=== PATIENT | male | born 1985 | race Caucasian/White ===

== ENCOUNTER 2023-10-03 05:13 | Inpatient (IN) ==
--- NOTE | 2023-10-02 10:16 | Anesthesiology Consultation ---
Date of Service October 02, 2023 Assessment & Plan (1) Encounter for pre-operative examination: - check CBC with diff, BMP, coags, CRP, ESR and MRSA nasal swab STAT am DOS per surgeon's office. Fluid orders to anesthesiologist review of BMP DOS. [place] lab confirmed that MRSA swab can be completed and resulted prior to surgery within 45-60 minutes DOS. Surgeon's office and OR made aware. - orthopedics phone call 10/02/23: "...he called retention representative last night. Dr. Manoj morrison was retention representative. After identification, did discuss with the patient the reason for the call last evening. He states that last evening he had a spike in a fever to 103 with weakness. He states that today he is doing OK. His knee pain has been stable. No worsening. He has not had any chills, sweats. He did have some nausea last night and has a little bit of a sour stomach this morning. His temp today is ranging from 100.2-100.6 on Tylenol. Did discuss the option of going to ED today for admission and IV antibiotics. He is doing OK at this point. We have him scheduled for a right knee wash out tomorrow. We will keep in touch with him..." - Per speech language specialist on 10/02/23: No known infectious disease contacts, current infectious disease symptoms in past 10 days or COVID positive test result in the past 30 days. Chart Review Chart Review: Acceptable Risk for Surgery and Patient NOT seen in Pre Admission Testing History Surgery Operation Date: 10/03/23 07:15 Proposed Procedures p Right Knee Arthroscopy, Irrigation and Debridement - Malcolm Gold MD Height/Weight Height: 6 ft Weight: 122.47 kg Allergies Allergy/AdvReac Type Severity Reaction Status Date / Time No Known Allergies Allergy Verified 10/02/23 09:43 Medications Home Medications Medication Instructions Recorded Confirmed Last Taken atorvastatin 40 mg tablet 40 mg PO HS 08/19/18 10/02/23 06/16/23 multivitamin 1 tab PO HS 05/26/20 10/02/23 06/16/23 tramadol 50 mg tablet 50 mg PO Q6H PRN Pain #20 tabs 05/27/20 10/02/23 Unknown promethazine 25 mg tablet 25 mg PO DAILY PRN Nausea 08/29/20 10/02/23 Unknown sumatriptan succinate 50 mg tablet 50 mg PO UD PRN Migraine Headache 08/29/20 10/02/23 Unknown (Imitrex) mupirocin 2 % topical ointment 1 applic topical .qhs PRN dryness 03/20/21 10/02/23 Unknown and crusting #15 grams bupropion HCl 150 mg 24 hr tablet, 150 mg PO QAM 06/07/21 10/02/23 06/17/23 extended release ondansetron HCl 4 mg tablet 4 mg PO Q6H PRN nausea and 07/06/21 10/02/23 Unknown vomiting #12 tabs montelukast 10 mg tablet 10 mg PO QAM #90 tabs 08/04/21 10/02/23 06/17/23 (Singulair) fluoxetine 20 mg capsule 20 mg PO HS 06/07/23 10/02/23 06/16/23 ipratropium bromide 21 mcg (0.03 1 spray intranasal QAM PRN nasal 06/07/23 10/02/23 Unknown %) nasal spray congetion sulfamethoxazole 800 1 tab PO Q12H 10 days #20 tabs 10/01/23 10/02/23 Unknown mg-trimethoprim 160 mg tablet (Bactrim DS) acetaminophen 500 mg tablet 500 mg PO Q6H PRN fever/pain 10/02/23 10/02/23 Unknown naproxen sodium 220 mg tablet 220 mg PO BID PRN fever/pain 10/02/23 10/02/23 Unknown (Aleve) Past Medical History Medical History (Updated 10/02/23 @ 10:14 by Roseann Thomas PA-C) ADHD no current medications Allergic reaction to food Chronic sinusitis History of COVID-19 (2019) resolved History of migraine headaches Hx of penicillin allergy tested in 2020, no longer has an allergy. Hyperlipidemia lipitor Post traumatic stress disorder Seasonal allergies Septic arthritis of knee, right current staph infection, started on abx 10/01/23. currently has a fever and taking tylenol and aleve around the clock to maintain temp ~100*F (per patient) Sleep apnea hx MANUEL? - denies having MANUEL. Social anxiety disorder loud crowded environments Past Family History Family History Grandfather (Maternal) Hearing loss Cancer Grandmother (Maternal) Hearing loss Unknown Hypertension Other No family history of adverse response to anesthesia No family history of bleeding disorder Past Surgical History Surgical History History of ankle surgery (06/18/23) right ankle arthroscopy History of colonoscopy History of nasal septoplasty (05/27/20) Dr Pitts History of sinus surgery (05/27/20) Dr. Pitts History of tonsillectomy (01/20/21) Dr. Pitts History of uvulopalatopharyngoplasty (01/20/21) Dr. Pitts S/P hip arthroscopy x3 right hip arthroscopy S/P right knee arthroscopy (06/18/23) Social History Smoking Status: Never smoker Do You Dip or Chew Tobacco: No Hx Alcohol Use: Yes Alcohol type: beer and hard liquor alcohol intake frequency: holidays/special occasions only Hx Substance Use: No substance use type: does not use
[2023-10-03 05:42] LABS: Basophils # (auto) 0.05 K/uL (0.00-0.20); Basophils % (auto) 0.3 %; Eosinophils # (auto) 0.23 K/uL (0.00-0.50); Eosinophils % (auto) 1.5 %; Hematocrit (blood only) 41.4 % (42.0-52.0); Hemoglobin 13.8 g/dl (14.0-18.0); Immature Granulocytes # (auto) 0.09 K/uL (0.01-0.20); Immature Granulocytes % (auto) 0.6 %; Lymphocytes # (auto) 2.32 K/uL (1.20-3.40); Lymphocytes % (auto) 15.5 %; Mean Corpuscular Hemoglobin 26.2 pg (25.0-34.0); Mean Corpuscular Hgb Conc 33.3 g/dL (32.0-36.0); Mean Corpuscular Volume 78.6 fL (80.0-100.0); Mean Platelet Volume 11.3 fL (9.4-12.4); Monocytes # (auto) 1.37 K/uL (0.11-0.59); Monocytes % (auto) 9.1 %; Neutrophils # (auto) 10.92 K/uL (1.40-6.50); Platelet Count 249 K/uL (130-400); RDW Standard Deviation 37.1 fL (36.4-46.3); Red Blood Count 5.27 M/uL (4.70-6.10); White Blood Count 14.98 K/ul (4.8-10.8)
[2023-10-03 05:56] LABS: BUN Creatinine Ratio 12.9 (10-20); C Reactive Protein 24.23 mg/dl (0-0.5); Calcium 9.4 mg/dl (8.6-10.3); Creatinine Clr Calc Pharmacy 142.7 ml/min; Est GFR (African American) 118.6 ml/min; Est GFR (Non-African American) 102.3 ml/min
[2023-10-03] MEDS: LR 60ML/HR IV SCH (05:57)
[2023-10-03] MEDS: ACETAMINOPHEN 500 MG TAB PO SCH ×2 (05:58→14:10)
[2023-10-03 06:15] LABS: Partial Thromboplastin Ratio 1.1; Partial Thromboplastin Time 30 Seconds (21-31); Prothrombin Time 10.8 Seconds (9.0-12.0)
[2023-10-03] MEDS ORDERED: LIDOCAINE 2% 2 ML VIAL/AMP(20MG/ML) INFIL ONE (06:30)
[2023-10-03] MEDS ORDERED: ONDANSETRON INJ 2 MG/ML 2 ML VIAL ONE (06:31)
[2023-10-03] MEDS ORDERED: PROPOFOL IV EMULSION 10 MG/ML 20 ML VIAL IV ONE (06:31)
[2023-10-03] MEDS ORDERED: DEXAMETHASONE SOD INJ 4 MG/ML VIAL ONE ×2 (06:31→08:19)
[2023-10-03] MEDS ORDERED: MIDAZOLAM HCL 1 MG/ML 2ML VIAL ONE (06:31)
[2023-10-03] MEDS ORDERED: fentaNYL citrate PF 100 MCG/2 ML VIAL ONE ×2 (06:31→08:31)
[2023-10-03] MEDS ORDERED: ePHEDrine sulfate 50 MG/ML AMP IV PRN (06:50)
[2023-10-03] MEDS ORDERED: ATROPINE SULFATE 0.1 MG/ML 10ML SYR IV PRN (06:50)
[2023-10-03] MEDS ORDERED: fentaNYL citrate PF 100 MCG/2 ML VIAL IV PRN (06:50)
[2023-10-03] MEDS ORDERED: ONDANSETRON INJ 2 MG/ML 2 ML VIAL IV PRN ×2 (06:50→10:28)
--- NOTE | 2023-10-03 07:09 | History & Physical Report ---
Date of Service October 03, 2023 Assessment & Plan (1) Septic arthritis of knee, right: I reviewed the risk, benefits, and alternatives to surgical invention this morning. Patient and his are agreeable to proceed with right knee irrigation and debridement for the septic arthritis. Will plan to keep him adm itted at least overnight for parental IV treatment until an antibiotic plan can be established. History of Present Illness Chief Complaint: Right knee pain and swelling Primary Care Provider: Zahraa Stratton PA-C 38-year-old male who several months out from a prepatellar bursectomy developed a septic arthritis that we identified in clinic this week. We initially started him on Bactrim and symptoms improved. Unfortunately the culture grew out Staphylococcus. We recommended irrigation debridement. He says fevers have been down but the knee remains painful and red. No prior history of this problem. Allergies Allergy/AdvReac Type Severity Reaction Status Date / Time No Known Allergies Allergy Verified 10/03/23 05:34 Home Medications Medication Instructions Recorded Confirmed Type atorvastatin 40 mg tablet 40 mg PO HS 08/19/18 10/03/23 History multivitamin 1 tab PO HS 05/26/20 10/03/23 History tramadol 50 mg tablet 50 mg PO Q6H PRN Pain #20 tabs 05/27/20 10/03/23 Rx promethazine 25 mg tablet 25 mg PO DAILY PRN Nausea 08/29/20 10/03/23 History sumatriptan succinate 50 mg tablet 50 mg PO UD PRN Migraine Headache 08/29/20 10/03/23 History (Imitrex) mupirocin 2 % topical ointment 1 applic topical .qhs PRN dryness 03/20/21 10/03/23 Rx and crusting #15 grams bupropion HCl 150 mg 24 hr tablet, 150 mg PO QAM 06/07/21 10/03/23 History extended release (Wellbutrin XL) ondansetron HCl 4 mg tablet 4 mg PO Q6H PRN nausea and 07/06/21 10/03/23 Rx vomiting #12 tabs montelukast 10 mg tablet 10 mg PO QAM #90 tabs 08/04/21 10/03/23 Rx (Singulair) fluoxetine 20 mg capsule 20 mg PO HS 06/07/23 10/03/23 History ipratropium bromide 21 mcg (0.03 1 spray intranasal QAM PRN nasal 06/07/23 10/03/23 History %) nasal spray congetion sulfamethoxazole 800 1 tab PO Q12H 10 days #20 tabs 10/01/23 10/03/23 Rx mg-trimethoprim 160 mg tablet (Bactrim DS) acetaminophen 500 mg tablet 500 mg PO Q6H PRN fever/pain 10/02/23 10/03/23 History naproxen sodium 220 mg tablet 220 mg PO BID PRN fever/pain 10/02/23 10/03/23 History (Aleve) Past Med/Surg History Problem List Septic arthritis of knee, right Knee effusion, right S/P right knee surgery Operation Date: 06/18/23 09:50 Actual Procedures p Right Knee Prepatellar Bursectomy(Right) - Malcolm Gold MD s Right Ankle Arthroscopy, Synovectomy (Right) - Malcolm Gold MD s Open Peroneal Brevis Repair(Right) - Malcolm Gold MD History of ankle surgery Operation Date: 06/18/23 09:50 Actual Procedures p Right Knee Prepatellar Bursectomy(Right) - Malcolm Gold MD s Right Ankle Arthroscopy, Synovectomy (Right) - Malcolm Gold MD s Open Peroneal Brevis Repair(Right) - Malcolm Gold MD Effusion, right ankle Allergic rhinitis due to dust mite Penicillin allergy Non-allergic rhinitis Allergic rhinitis due to pollen Iliopsoas bursitis of right hip Tear of peroneal tendon of right foot Tendinitis of right hip flexor Right hip impingement syndrome Labral tear of hip joint p Right Hip Arthroscopy,Iliopsoas Release, Revision Labral Repair, Femoroplasty, Capsular Repair, Acetabuloplasty Sinusitis Allergic fungal sinusitis (AFS) Encounter for pre-operative examination Migraines Chronic sinusitis Acquired deviated nasal septum Sleep apnea Prepatellar bursitis, right knee Depression Rash and nonspecific skin eruption (Acute) Corneal abrasion (Acute) Medical History Allergic reaction to food Septic arthritis of knee, right current staph infection, started on abx 10/01/23. currently has a fever and taking tylenol and aleve around the clock to maintain temp ~100*F (per patient) Chronic sinusitis Post traumatic stress disorder Social anxiety disorder loud crowded environments Sleep apnea hx MANUEL? - denies having MANUEL. Hx of penicillin allergy tested in 2020, no longer has an allergy. History of COVID-19 (2019) resolved Seasonal allergies History of migraine headaches ADHD no current medications Hyperlipidemia lipitor Surgical History S/P right knee arthroscopy (06/18/23) History of ankle surgery (06/18/23) right ankle arthroscopy S/P hip arthroscopy x3 right hip arthroscopy History of uvulopalatopharyngoplasty (01/20/21) Dr. Pitts History of tonsillectomy (01/20/21) Dr. Pitts History of sinus surgery (05/27/20) Dr. Pitts History of nasal septoplasty (05/27/20) Dr Pitts History of colonoscopy Family History Grandfather (Maternal) Hearing loss Cancer Grandmother (Maternal) Hearing loss Unknown Hypertension Other No family history of adverse response to anesthesia No family history of bleeding disorder Social History Smoking Status: Never smoker Second Hand Exposure: No; Do You Dip or Chew Tobacco: No; Tobacco Cessation Education Requested by Patient: No Hx Alcohol Use: Yes Alcohol type: beer and hard liquor Hx Substance Use: No Preferred Language: Kinyarwanda Communication Ability: Effective Studio Sales Associate Required: No Beliefs That Will Affect Care: None Current Living Situation: Spouse and Family Other Information That Helps Us Care for You: No Feels Safe at Home: Yes Safety Concerns: Feels Safe At This Time Assistive Devices: Glasses Review of Systems All systems reviewed & are unremarkable except as noted in HPI & below. Physical Exam Right knee: Patchy erythema over the anterior aspect. No drainage from that well-healed surgical incisions. Range of motion from 0 to about 90 limited by tension. Minimal tenderness over the anterior soft tissues. Mild effusion. Constitutional well developed and well nourished; no acute distress and not intoxicated appearing ENMT external ear and nose normal, oropharynx normal Respiratory normal respiratory effort; no respiratory distress Cardiovascular Extremities: normal capillary refill; no edema Skin no rashes, warm and dry Psychiatric A+Ox3, euthymic affect Results & Data Results & Data Laboratory Results . Diagnostic Findings . PG Care Time/CCT Total # of Minutes Spent Total Time Spent with Patient: Total time spent is greater than 50% in coordination of care (as documented) at patient's floor/unit and/or counseling patient: Coding Level of Care Code None Diagnoses Septic arthritis of knee, right M00.9
[2023-10-03] MEDS ORDERED: ACETAMINOPHEN 1000 MG/100 ML IV IV ONE (07:11)
[2023-10-03] MEDS ORDERED: DexMEDEtomidine HCL IV 100 MCG/ML VIAL IV ONE (07:11)
[2023-10-03] MEDS: ceFAZolin 3000MG 3,000 MG/72.5 ML BAG IV SCH (07:15)
[2023-10-03] MEDS: BUPIVACAINE/EPINEPHRINE 0.25% 1:200,000 30 ML VIAL ONE (08:04)
[2023-10-03] MEDS ORDERED: KETOROLAC 30 MG/ML VIAL ONE (08:19)
--- NOTE | 2023-10-03 08:40 | Post Operative Brief Note ---
PG Immediate Post Op with CF Date of Surgery October 03, 2023 Pre & Post Diagnosis Operation Date: 10/03/23 07:15 Pre-Op Diagnosis: Septic arthritis of knee, right Post-Op Diagnosis: Septic arthritis of knee, right I identified the patient and participated in the time-out.: Yes Procedure Operation Date: 10/03/23 07:15 Actual Procedures p Right Knee Arthroscopy, Endoscopic Prepatellar Bursectomy, Irrigation and Debridement(Right) - Malcolm Gold MD Surgeon Mlacolm Gold MD Marine Plumber Deena Peter PA-C Estimated Blood Loss 25 Findings See Below Septic prepatellar bursitis. No evidence of intra-articular involvement. Specimens Specimen Description: 1. Right prepatella bursa Drains Mendel-Joseph Drain Complications none
--- NOTE | 2023-10-03 09:29 | Anesthesiology Progress Note ---
Date of Service October 03, 2023 Anesthesia Post Procedure Vital Signs Vital Signs: Temp Pulse Resp BP Pulse Ox O2 Del Method O2 Flow Rate 10/03/23 09:20 79 15 128/72 95 Room Air 10/03/23 09:10 78 17 119/83 97 Oxymask 10 10/03/23 09:03 36.0 C L 80 12 136/86 97 Oxymask 10 10/03/23 05:38 37.1 C 80 18 139/95 98 Room Air Pain Intensity Right Knee: Pain Intensity: 2 Transfer of Care Handoff Completed per policy Notes Mental Status: alert / awake / arousable Patient Amnestic to Procedure: Yes Nausea / Vomiting: adequately controlled Pain: adequately controlled Airway Patency, RR, SpO2: stable & adequate BP & HR: stable & adequate Hydration State: stable & adequate Anesthetic Complications: no major complications apparent and Pt Satisfied with anesthetic care
[2023-10-03] MEDS ORDERED: METOCLOPRAMIDE HCL INJ 5 MG/ML 2 ML VIAL IV PRN (10:28)
[2023-10-03] MEDS ORDERED: MAGNESIUM HYDROXIDE SUSP 30 ML UDC PO PRN (10:28)
[2023-10-03] MEDS ORDERED: HYDROmorphone INJ 0.5 MG/0.5 ML SYR IV PRN (10:28)
[2023-10-03] MEDS ORDERED: NALOXONE HCL 0.4 MG/1 ML VIAL/CARP IV PRN (10:28)
[2023-10-03] MEDS ORDERED: bisacodyL 10 MG SUPP PR PRN (10:28)
[2023-10-03] MEDS ORDERED: PROMETHAZINE HCL 25 MG TAB PO PRN (10:28)
[2023-10-03] MEDS ORDERED: diphenhydrAMINE Capsule 25 MG CAP PO PRN (10:28)
[2023-10-03] MEDS: SODIUM CHLORIDE 0.9% 1,000 ML IV SCH (10:40)
[2023-10-03] MEDS ORDERED: IPRATROPIUM BROMIDE NASAL SPRAY 0.06% 15ML NAE PRN (10:44)
[2023-10-03] MEDS: ceFAZolin 2000MG 2,000 MG/15 ML SYR IV SCH (16:01)
--- NOTE | 2023-10-03 18:52 | Operative Report ---
PG Post Operative Report Pre & Post Diagnosis Operation Date: 10/03/23 07:15 Pre-Op Diagnosis: Possible septic arthritis of knee, right Post-Op Diagnosis: Septic prepatellar bursa of right knee I identified the patient and participated in the time-out.: Yes Procedure Operation Date: 10/03/23 07:15 Actual Procedures p Right Knee Arthroscopy, knee joint aspiration, endoscopic Prepatellar Bursectomy, Irrigation and Debridement, knee arthroscopy for irrigation (Right) - Malcolm Gold MD Surgeon Malcolm Gold MD Anode Worker Deena Peter PA-C Estimated Blood Loss 25 Findings See Below Examination under anesthesia revealed majority of the fluid was in the prepatellar space. I cannot palpate an effusion today after the aspiration earlier this week. Knee was prepped and an aspiration was performed in the superior lateral access. No intra-articular fluid could be aspirated. Standard anterolateral and anteromedial incisions were made for an endoscopic prepatellar bursectomy which revealed significant purulent fluid. Revision bursectomy and irrigation debridement of the prepatellar space was performed endoscopically. The superior lateral portal was then utilized because it was away from the prepatellar process. This port was used to enter the joint. Cam was introduced and there was no evidence of infection. Only mild synovitis likely reactive. 6 L of normal saline was then irrigated through the arthroscope through the knee following the endoscopic bursectomy portion. The CHAO drain was placed in the prepatellar space. Specimens Prepatellar bursal aspiration for culture Anesthesia Type General Complications none Disposition Accompanied Patient To Recovery: Yes Disposition: Recovery Room Indications 38-year-old male developed insidious onset pain and swelling in his right knee several months after undergoing an open prepatellar bursectomy for chronic bursitis. He had fevers and a culture positive aspiration from the knee joint. For that reason he was admitted today for urgent irrigation debridement for potential septic arthritis. Curiously, his intra-articular cell count was only 7000. Cultures were positive for Staphylococcus. Reviewed the potential risks of septic arthritis and the patient was agreeable to surgical intervention to washout the medial prepatellar bursa as needed. We did review the risks and benefits in detail. The risks we discussed include but not limited to infection nerve or vessel injury, arthrofibrosis of the knee, need for repeat or revision surgeries, progressive degenerative changes with or without the washout, pendulums, blood clots, and complication related anesthesia. Informed consent was obtained in the clinic, as outlined in the preoperative notes. Description of Procedure On the day of surgery, the patient was greeted in the preoperative holding area. The informed consent was reviewed and confirmed by myself and the patient. The patient identified the surgical site and was marked by me. The patient was then turned over to anesthesia. He was taken to the operating room and placed supine on the OR table. Anesthesia was induced, and the airway was secured. He was positioned supine for knee arthroscopy with a lateral post. Examination was carried out under anesthesia. There was evidence that this is a prepatellar process. Surgical timeout was called by the circulating nurse, and verified by all present. Antibiotics had been infused already and equipment is available and functional. The knee was then prepped in standard fashion and a spinal needle was aspirated the knee joint from the superior lateral portal, away from the erythematous and edematous prepatellar bursal process. This aspiration yielded no synovial fluid from the joint. A different trajectory through the anteromedial portal was used to enter the prepatellar space. Here 20 cc of sanguinous and mildly purulent fluid was extracted. This was sent for culture. The knee was then prepped and draped in the usual sterile fashion for knee arthroscopy. A nonsterile tourniquet had been placed high in the thigh above the sterile area. Standard anterior medial and anterolateral incisions were made immediately. The trocar was then used into the prepatellar space. There was reflux of purulent fluid. The scope was introduced. Medial portal was then entered with motorized shaver. We established visualization by triangulation the prepatellar space. There was obvious synovitic change and thickened bursal tissue on the patella. An extensive prepatellar revision bursectomy was carried out. Removed all erythematous synovitic looking material in the prepatellar space and opened more proximally. Approximately 9 L of irrigant was run through the prepatellar space with the arthroscope during the sterile bursectomy. The [place] wand was used for hemostasis intermittently. Given the obvious prepatellar process, the joint was of less concern. We did obtain an aspiration for culture 2 days ago. For that reason I felt the joint was violated and need to be explored. The superior lateral portal was chosen as it was outside the zone of prepatellar bursitis and erythema. Small skin incision was made, and the trocar was used into the joint and the anterior compartment. Visualization was established. There was pristine articular cartilage. There was some mild anterior compartment synovitis. No evidence of infection in the intra-articular space. 6 L of normal arthroscopic saline was run through the scope while inflating and deflating the joint for thorough irrigation. A CHAO drain was selected and placed through the anterior medial portal and exiting more proximally. This was secured with suture. The incisions were closed using nylon suture. Wounds are dressed with sterile Xeroform, David gauze, ABD, and web roll. The dressing was contained by sterile Olvin wrap. CHAO drain was set to its own suction. The patient tolerated the procedure well, was extubated in the operating without complication, and transported to the recovery in stable condition. Disposition: He will remain inpatient for parenteral antibiotics. Cultures will be followed from the OR; however, we do have aspirate of cultures prior to antibiotic initiation. Will plan to treat for MSSA per this culture and sensitivity. Will follow CHAO drain output and likely discharge in 24 to 48 hours depending on his clinical improvement. He will be weightbearing and range of motion as tolerated. Physician assistant buyer attestation: Deena Peter PA-C was present and scrubbed for the duration of the case. Skilled assistance was essential to prepping/draping, patient positioning, retraction, and assistance with wound closure. I attest to the content of the Intraoperative Record and any orders documented therein. Any exceptions are noted below.
[2023-10-03] MEDS: DOCUSATE SODIUM 100 MG CAP PO SCH (19:39)
[2023-10-03] MEDS: SENNA 8.6 MG TAB PO SCH (19:39)
[2023-10-03] MEDS: ATORVASTATIN 40 MG TAB PO SCH (20:26)
[2023-10-03] MEDS: FLUoxetine HCL 20 MG CAP PO SCH (20:26)
[2023-10-04] MEDS: oxyCODONE HCL IR 5 MG TAB (IMMEDIATE RELEASE) PO PRN (00:54)
[2023-10-04 07:35] LABS: Basophils # (auto) 0.03 K/uL (0.00-0.20); Basophils % (auto) 0.2 %; Eosinophils # (auto) 0.09 K/uL (0.00-0.50); Eosinophils % (auto) 0.7 %; Hematocrit (blood only) 39.1 % (42.0-52.0); Hemoglobin 12.7 g/dl (14.0-18.0); Immature Granulocytes % (auto) 0.8 %; Lymphocytes # (auto) 2.21 K/uL (1.20-3.40); Lymphocytes % (auto) 17.7 %; Mean Corpuscular Hemoglobin 26.2 pg (25.0-34.0); Mean Corpuscular Hgb Conc 32.5 g/dL (32.0-36.0); Mean Corpuscular Volume 80.8 fL (80.0-100.0); Mean Platelet Volume 11.4 fL (9.4-12.4); Monocytes # (auto) 0.83 K/uL (0.11-0.59); Monocytes % (auto) 6.6 %; Neutrophils # (auto) 9.26 K/uL (1.40-6.50); Platelet Count 286 K/uL (130-400); RDW Coefficient of Variation 13.2 % (11.5-14.5); RDW Standard Deviation 38.5 fL (36.4-46.3); Red Blood Count 4.84 M/uL (4.70-6.10); White Blood Count 12.52 K/ul (4.8-10.8)
--- NOTE | 2023-10-04 08:40 | Discharge Summary ---
Date of Service October 04, 2023 Admission HPI (Per Admitting) 38-year-old male who several months out from a prepatellar bursectomy developed a septic arthritis that we identified in clinic this week. We initially started him on Bactrim and symptoms improved. Unfortunately the culture grew out Staphylococcus. We recommended irrigation debridement. He says fevers have been down but the knee remains painful and red. No prior history of this problem. Admission Exam (Per Admitting) Right knee: Patchy erythema over the anterior aspect. No drainage from that well-healed surgical incisions. Range of motion from 0 to about 90 limited by tension. Minimal tenderness over the anterior soft tissues. Mild effusion. Constitutional WD/WN, vitals as above Respiratory normal respiratory effort Skin no rashes Psychiatric A+Ox3, euthymic affect Principal Diagnosis Same as "Discharge Diagnosis" noted below under Discharge Instructions. Discharge Exam No acute distress. Right lower extremity: Dressing clean and dry and intact. The CHAO drain had light serosanguineous drainage less than 50 in 24 hours. Neurovascular intact. Constitutional WD/WN, vitals as above Respiratory normal respiratory effort Skin no rashes Psychiatric A+Ox3, euthymic affect Discharge Data Procedures Performed Operation Date: 10/03/23 07:15 Actual Procedures p Right Knee Arthroscopy, Endoscopic Prepatellar Bursectomy, Irrigation and Debridement(Right) - Malcolm Gold MD Ordered Studies 10/03/23 05:00 US - OR guided needle placemen Routine Hospital Course (1) Septic prepatellar bursitis of right knee: Patient was admitted for surgery yesterday. He underwent a prepatellar endoscopic bursectomy and irrigation of his knee joint without complication. On postoperative day 1, he was found to have improved symptoms. He has been afebrile. White count and inflammatory markers trending down. Cultures from clinic aspiration yielded MSSA and appropriate oral regimen had been started. Agreeable to the plan for 24 hours of postsurgical IV antibiotics and discharged to outpatient care with oral antibiotic regimen. The CHAO drain will be discontinued prior to discharge. PG Care Time/CCT Total # of Minutes Spent Total Time Spent with Patient: Total time spent is greater than 50% in coordination of care (as documented) at patient's floor/unit and/or counseling patient: Discharge Plan Discharge Items Patient Disposition: Home - Self-Care Reason For Visit: Septic Arthritis of Knee, Right, S/P Right Knee Hernandez Discharge Diagnosis: Septic prepatellar bursitis Activity: Per Instructions section Non-emergency contact: Surgeon Call non-emergency contact if: you have any medication questions, your pain is not controlled and your temperature is above 101 Follow-up/Referrals: Malcolm Gold MD [Surgeon] - Zahraa Stratton PA-C [Primary Care Provider] - Diet: Regular Addtl Attending Provider Instructions: Malcolm Gold M.D. [facility] Orthopedic Surgery [address], [place] [address] POSTOPERATIVE INSTRUCTIONS KNEE ARTHROSCOPY MOTION: You always want to be sure to get the knee completely straight back of knee towards the bed. Range of motion as tolerated no restrictions. You may gradually increase flexion as tolerated. WEIGHTBEARING: Weightbearing as tolerated means you can walk on your leg as your pain allows. Use your crutches for support. Gradually return to full weightbearing. You may discontinue crutches when you can safely walk without a limp. ACTIVITY: Please perform ROM (Range of Motion) exercises at least three times per day: 1. Ankle plantarflexion (gas pedal down) and dorsiflexion (pull foot up) 2. Toe flexion/extension wiggle toes 3. Straight leg raises hold your quads tight, lift your heel off the bed 12-15 inches while keeping the knee straight. Repeat. 4. Knee flexion/extension lie with leg flat, drag heel up the bed towards your buttocks, slowly return to flat position, try to get your leg completely straight (try to touch the back of your knee to the bed) WOUND CARE: Leave the dressing in place and keep the area clean and dry. After 3 days, you may remove your dressing. DO NOT REMOVE ANY SUTURES. After removing your dressing, you may begin to shower. Do not soak the incision. Allow gentle soap and water to run over the wound(s) and pat dry. Please cover the incision(s) with a clean, dry dressing, as needed. Do not use any ointments or topical medications unless directed by your surgeon. Do not submerse the incisions in water no pools, oceans, lakes, jacuzzis, bathtubs, etc for at least 3 weeks. PAIN CONTROL: Elevation is your best friend. Elevate the affected extremity above the level of your heart. Swelling is simply fluid. Elevation will allow the fluid to run down hill, reduce swelling, and decrease pain. The affected extremity should be continuously elevated for the first 2-3 days, with the exception of bathroom, hygiene, etc. You may be prone to swelling for several weeks, or until you return to normal function with your leg. Use ice (or cryocuff if you have one). Use for 30 minutes per hour. Do not leave in place longer than 30 minutes, especially when your block is in effect, to prevent frostbite or thermal injury. MEDICATIONS: 1. Oxycodone (OxyIR) 1-2 tablet(s) orally every 4 hours for pain as needed. Use with Tylenol. Begin tapering OxyIR as soon as possible: reduce from 2 to 1 pills per dose, then spread out the doses over greater time intervals, then try to use only for therapy or for comfort while sleeping. Continue to use regular Tylenol until pain subsides. 2. Tylenol (325mg): 3 tablets every 8 hours orally. Regular dosing of Tylenol is an important part of your baseline pain control. Do not taper Tylenol until you have successfully tapered off of regular OxyIR. Do not take more than 3000mg of Tylenol per day. 3. Zofran 1 tablet orally every 6 hours as needed for nausea related to anesthesia, pain, and narcotic medications 4. Aspirin (325mg): Take one tablet once daily for 6 weeks to reduce the risk of dangerous blood clots CONSTIPATION: Narcotic pain medications can slow down your digestive track, leading to cons tipation. Stay hydrated. While taking narcotics, the use of stool softeners is recommended. Two over the counter options are: 1. Colace (100mg): take 1-2 tabs twice daily to avoid constipation from OxyIR or other narcotics. 2. Miralax 1 tablespoon in a glass of water 2 times daily until normal bowel movements FOLLOWUP: 1. Ortho Clinic: You should be seen in 10-14 days. Please call immediately to schedule if you do not have an appointment. WHEN TO CALL. If you develop any of the following symptoms, please contact the Orthopedic Clinic at [phone]: Temperature greater than 101 taken twice, difficulty breathing, bleeding, fever and chills, increased pain unrelieved by pain meds, or any other concerns. Pending Studies at Discharge: No Stand-Alone Forms: My [facility], Smoking Cessation Medications and DC Order Prescriptions: New ondansetron 4 mg tablet,disintegrating 4 mg PO Q6H PRN (Reason: nausea and vomiting) Qty: 10 0RF oxycodone 5 mg tablet 5 - 10 mg PO Q4H MDD 6 tablets PRN (Reason: pain) Qty: 20 0RF Continued montelukast [Singulair] 10 mg tablet 10 mg PO QAM Qty: 90 3RF sulfamethoxazole-trimethoprim [Bactrim DS] 800-160 mg tablet 1 tab PO Q12H 10 Days Qty: 20 0RF mupirocin 2 % ointment 1 applic topical .qhs PRN (Reason: dryness and crusting ) Qty: 15 1RF Rx Instructions: Apply small amount to rim of the nostril qhs PRN nasal dryness and crusting atorvastatin 40 mg tablet 40 mg PO HS multivitamin Tablet 1 tab PO HS sumatriptan succinate [Imitrex] 50 mg Tablet 50 mg PO UD PRN (Reason: Migraine Headache) Rx Instructions: 50 mg q4hr prn ud promethazine 25 mg Tablet 25 mg PO DAILY PRN (Reason: Nausea) bupropion HCl [Wellbutrin XL] 150 mg Tablet Extended Release 24 Hr 150 mg PO QAM ondansetron HCl 4 mg tablet 4 mg PO Q6H PRN (Reason: nausea and vomiting) Qty: 12 0RF fluoxetine 20 mg Capsule 20 mg PO HS ipratropium bromide 21 mcg (0.03 %) spray,non-aerosol 1 spray intranasal QAM PRN (Reason: nasal congetion) Rx Instructions: Use 1-2 sprays each nostril 1-2 times a day; administer into each nostril acetaminophen 500 mg Tablet 500 mg PO Q6H PRN (Reason: fever/pain) naproxen sodium [Aleve] 220 mg Tablet 220 mg PO BID PRN (Reason: fever/pain) Discontinued tramadol 50 mg Tablet 50 mg PO Q6H PRN (Reason: Pain) Qty: 20 1RF Hold Instructions: Resume on 07/02/23. Please hold Tramadol as we are giving Oxy IR for post op pain starting on 06/18/2023. Discharge Orders: Discharge Order (Routine); Ordered 10/04/23 Ordered By: Malcolm Gold Admission Data Admit Date/Time: 10/03/23 09:15 Attending Provider: Malcolm Gold Admit Provider: Malcolm Gold Primary Care Provider: Zahraa Stratton
[2023-10-04] MEDS: MONTELUKAST SODIUM 10 MG TABLET PO SCH (09:00)
[2023-10-04] MEDS: buPROPion XL 150 MG TABCR PO SCH (09:01)
[2023-10-04] MEDS: MULTIVITAMIN TAB PO SCH (09:01)
[2023-10-04] MEDS: ceFAZolin 2000MG 2,000 MG/15 ML SYR IV SCH (10:42)
== END 2023-10-04 14:11 | disposition home or self-care (01) | DRG 502 ==
LOC: ASU 05:13 → 3E 09:15